=== PATIENT | female | born 1960 | race Caucasian/White ===

== ENCOUNTER → 2017-08-24 | Outpatient (CLI) | payer OTHER, MEDICAID ==
[~2017-08-24] MED LIST: ASPIR-TRIN325 MG PO; ASPIRIN EC325 MG PO; BUTALB-ACETAMI1 EAC2 PO; CARISOPRODOL; CHOLESTEROL MED PO; CITALOPRAM; CLARITIN10 MG PO; COLACE100 MG PO; COLACE50 MG PO; CYMBALTA30 MG PO; CYMBALTA60 MG PO; DESYREL; DIAZEPAM 5 MG5 M1 PO; DILAUDID8 MG PO; DURAGESIC; EVISTA PO; FENOFIBRATE130 MG PO; FLOVENT HFA 1110 MCG; FLOVENT HFA 2220 MC1 INH; GLUCOSAMINE CH1 EAC7 PO; IBUPROFEN 800800 M1 PO; LANSOPRAZOLE30 MG PO; LEVAQUIN 500 M500 M2 PO; LINZESS145 MCG PO; METHADONE HCL5 MG PO; METOCLOPRAMIDE; MOVANTIK25 MG PO; MS CONTIN15 MG PO; MS CONTIN30 MG PO; MULTIVITAMINS1 EAC7 PO; OMEPRAZOLE40 MG PO; OXYCODONE HCL15 MG PO; OXYCODONE HCL30 MG PO; PERCOCET 10-321 EACH; PERCOCET 5-3251 EACH PO; PREDNISONE 10 M10 MG PO; PREDNISONE 20 M20 MG PO; PREVACID30 MG PO; PRILOSEC; PROBIOTIC1 EAC1 PO; PROTONIX40 M2; REGLAN 10 MG TA10 MG PO; ROBAXIN 750 MG750 M1 PO; ROXICODONE15 M1 PO; TRAZODONE HCL100 MG PO; TUMS PO; TUMS200 MG PO; VITAMIN D250000 UNIT PO; VITAMIN E400 UNI2 PO; XARELTO10 MG PO; ZOFRAN4 MG PO; ZPAK PO
== END ==
LOC: M.MRI 11:15
DX: M51.16 Intervertebral disc disorders with radiculopathy, lumbar region (principal); M41.86 Other forms of scoliosis, lumbar region; M48.061 Spinal stenosis, lumbar region without neurogenic claudication; G89.29 Other chronic pain

== ENCOUNTER → 2018-01-01 | Outpatient (CLI) | payer MEDICARE, MEDICAID | LOC: M.MRI 11:08 | DX: M25.461 Effusion, right knee (principal); E78.00 Pure hypercholesterolemia, unspecified; J45.909 Unspecified asthma, uncomplicated; E78.5 Hyperlipidemia, unspecified ==

== ENCOUNTER → 2018-05-28 | Outpatient (CLI) | payer MEDICARE, MEDICAID | LOC: M.MRI 09:43 | DX: M47.26 Other spondylosis with radiculopathy, lumbar region (principal); M50.123 Cervical disc disorder at C6-C7 level with radiculopathy; M25.78 Osteophyte, vertebrae; M51.16 Intervertebral disc disorders with radiculopathy, lumbar region; M48.02 Spinal stenosis, cervical region; M48.062 Spinal stenosis, lumbar region with neurogenic claudication; M41.86 Other forms of scoliosis, lumbar region; M12.88 Other specific arthropathies, not elsewhere classified, other specified site ==

== ENCOUNTER → 2018-10-19 | Outpatient (CLI) | payer OTHER, MEDICAID ==
--- NOTE | 2018-10-21 08:13 | PF ---
[address] [address] PULMONARY FUNCTION REPORT Name: MICHAEL MCKOY Room: [facility]#: [id number] Admission: 10/19/18 Attend Phys: Hortencia Lakhani MD Discharge: Date of : 60 Report #: [id number] THIS REPORT FOR: //name// CC: Hortencia Lakhani DATE OF SERVICE: 10/19/2018 REQUESTING PHYSICIAN: Dr. Hortencia Lakhani. Spirometry was done. FEV1 normal at 2.54, which is 87% of predicted. Her FEV1/FVC ratio was 71%. Mid flows were severely decreased. After inhaled bronchodilator, there was no change in the FEV1 or FVC. There was 44% improvement at the level of the small airways. Lung volumes by plethysmography do reveal an increase in residual volume and TLC. Diffusion capacity was normal. IMPRESSION: These studies are consistent with a very mild obstructive process seen primarily at the level of small airways. Does have improvement after inhaled bronchodilator. There is evidence of mild air trapping and hyperinflation. <ELECTRONICALLY SIGNED> By: Sunitha Pavon MD 10/21/18 0813 [id number] Pavon MD /nt
== END ==
LOC: M.RAD 08:49
DX: Z12.31 Encounter for screening mammogram for malignant neoplasm of breast (principal); J98.4 Other disorders of lung; R06.02 Shortness of breath

== ENCOUNTER → 2018-10-25 | Outpatient (CLI) | payer OTHER, MEDICAID | LOC: M.CT 10-21 13:00 | DX: R91.8 Other nonspecific abnormal finding of lung field (principal); J98.4 Other disorders of lung; M41.84 Other forms of scoliosis, thoracic region ==

== ENCOUNTER → 2020-08-30 | Outpatient (CLI) | payer OTHER, MEDICAID | LOC: M.PC 10:02 | PROVIDERS: ATTEND Anesthesiology Pain Medicine | DX: G89.29 Other chronic pain (principal); M51.16 Intervertebral disc disorders with radiculopathy, lumbar region; M47.26 Other spondylosis with radiculopathy, lumbar region; M48.061 Spinal stenosis, lumbar region without neurogenic claudication; M46.1 Sacroiliitis, not elsewhere classified; K21.9 Gastro-esophageal reflux disease without esophagitis; E78.00 Pure hypercholesterolemia, unspecified; J45.909 Unspecified asthma, uncomplicated; J44.9 Chronic obstructive pulmonary disease, unspecified; Z96.641 Presence of right artificial hip joint; Z68.20 Body mass index [BMI] 20.0-20.9, adult; Z88.5 Allergy status to narcotic agent; Z88.0 Allergy status to penicillin; Z88.8 Allergy status to other drugs, medicaments and biological substances; Z79.891 Long term (current) use of opiate analgesic; Z79.899 Other long term (current) drug therapy ==

== ENCOUNTER → 2020-10-04 | Outpatient (CLI) | payer OTHER, MEDICAID ==
[~2020-10-04] MED LIST changes: +OXYCODONE HCL5 M1 PO; +ROXICODONE5 M2 PO
== END ==
LOC: M.PC 10:21
PROVIDERS: ATTEND Anesthesiology Pain Medicine
DX: M47.26 Other spondylosis with radiculopathy, lumbar region (principal); M51.16 Intervertebral disc disorders with radiculopathy, lumbar region; M48.061 Spinal stenosis, lumbar region without neurogenic claudication; M87.851 Other osteonecrosis, right femur; M87.852 Other osteonecrosis, left femur; K21.9 Gastro-esophageal reflux disease without esophagitis; J44.9 Chronic obstructive pulmonary disease, unspecified; M46.1 Sacroiliitis, not elsewhere classified

== ENCOUNTER → 2021-01-08 | Outpatient (CLI) | payer OTHER, MEDICAID | LOC: M.RAD 12-27 14:30 | PROVIDERS: ATTEND Family Medicine | DX: Z12.31 Encounter for screening mammogram for malignant neoplasm of breast (principal); M81.0 Age-related osteoporosis without current pathological fracture ==

== ENCOUNTER → 2021-01-24 | Outpatient (CLI) | payer OTHER, MEDICAID ==
[~2021-01-24] MED LIST changes: +MEDROLDOSEPACK PO
== END ==
LOC: M.PC 01-15 09:40
PROVIDERS: ATTEND Anesthesiology Pain Medicine
DX: M51.16 Intervertebral disc disorders with radiculopathy, lumbar region (principal); M48.061 Spinal stenosis, lumbar region without neurogenic claudication; M47.26 Other spondylosis with radiculopathy, lumbar region; M87.9 Osteonecrosis, unspecified; K21.9 Gastro-esophageal reflux disease without esophagitis; J44.9 Chronic obstructive pulmonary disease, unspecified; Z96.641 Presence of right artificial hip joint

== ENCOUNTER → 2021-01-29 | Outpatient (CLI) | payer OTHER, MEDICAID | LOC: M.ULTRA 13:00 | PROVIDERS: ATTEND Family Medicine | DX: I70.201 Unspecified atherosclerosis of native arteries of extremities, right leg (principal) ==

== ENCOUNTER → 2021-06-06 | Outpatient (CLI) | payer OTHER, MEDICAID ==
[~2021-06-06] MED LIST changes: +DESYREL50 MG PO; +DIAZEPAM 10 MG10 M1 PO; +ENDOCET 10-3251 EACH PO; +FLOVENT HFA 1110 MCG INH; +PANTOPRAZOLE SO40 M1 PO; +PROMETHAZINE12.5 M1 PO; +STOOL SOFTENER1 EAC2 PO
== END ==
LOC: M.PC 06-04 11:00
PROVIDERS: ATTEND Anesthesiology Pain Medicine
DX: M51.16 Intervertebral disc disorders with radiculopathy, lumbar region (principal); M48.061 Spinal stenosis, lumbar region without neurogenic claudication; M47.26 Other spondylosis with radiculopathy, lumbar region; M25.511 Pain in right shoulder; M54.2 Cervicalgia; K21.9 Gastro-esophageal reflux disease without esophagitis; M19.90 Unspecified osteoarthritis, unspecified site; J44.9 Chronic obstructive pulmonary disease, unspecified; Z96.643 Presence of artificial hip joint, bilateral; Z88.0 Allergy status to penicillin; Z88.8 Allergy status to other drugs, medicaments and biological substances; Z79.899 Other long term (current) drug therapy